=== PATIENT | female | born 1950 | race African-American/Black ===

== ENCOUNTER 2018-07-07 05:48 | Inpatient (IN) | payer OTHER ==
[~2018-07-07] VITALS: Ht 165.1 cm; Wt 106.1 kg
[2018-07-07 06:16] VITALS: BP 116/68
[2018-07-07 13:42] VITALS: BP 114/67
[2018-07-07 17:14] VITALS: BP 158/62
[2018-07-07 22:29] VITALS: BP 130/64
[2018-07-08 05:12] VITALS: BP 127/69
[2018-07-08 06:36] LABS: BASOPHIL % 0.3 % (0-2); PLATELET COUNT 330 x10^3mcL (130-400)
[2018-07-08 06:41] LABS: CALCIUM 8.4 mg/dL (8.5-10.1); CREATININE SERUM 1.1 mg/dL (0.6-1.0); POTASSIUM SERUM 4.2 mmol/L (3.5-5.1)
[2018-07-08 07:41] LABS: RED CELL DISTRIBUTION WIDTH 14.6 % (11.5-14.5)
[2018-07-08 08:55] VITALS: BP 115/59
[2018-07-08 12:27] VITALS: BP 130/64
[2018-07-08 12:46] VITALS: BP 117/58
[2018-07-08 16:40] VITALS: BP 126/61
[2018-07-08 20:39] VITALS: BP 120/50
[2018-07-09 04:13] VITALS: BP 107/56
[2018-07-09 07:21] LABS: BASOPHIL % 0.1 % (0-2); PLATELET COUNT 280 x10^3mcL (130-400); RED CELL DISTRIBUTION WIDTH 14.3 % (11.5-14.5)
[2018-07-09 07:27] LABS: CALCIUM 8.4 mg/dL (8.5-10.1); CARBON DIOXIDE 29.3 mmol/L (21-32); CREATININE SERUM 1.1 mg/dL (0.6-1.0); POTASSIUM SERUM 3.7 mmol/L (3.5-5.1)
[2018-07-09 09:55] VITALS: BP 0131/70
[2018-07-09 14:18] LABS: BASOPHIL % 0.2 % (0-2); PLATELET COUNT 315 x10^3mcL (130-400); RED CELL DISTRIBUTION WIDTH 14.9 % (11.5-14.5)
[2018-07-09 17:13] VITALS: BP 119/60
[2018-07-09 17:58] VITALS: BP 119/60
== END 2018-07-09 19:08 | disposition home health service (06) | DRG 470 ==
LOC: MU 05:48
PROVIDERS: Internal Medicine Pulmonary Disease; Neuromusculoskeletal Medicine, Sports Medicine
PROC: 30233N1 Transfusion of Nonautologous Red Blood Cells into Peripheral Vein, Percutaneous Approach (ICD-10-PCS; 2018-07-07)
PROC: 0SRD0J9 Replacement of Left Knee Joint with Synthetic Substitute, Cemented, Open Approach (ICD-10-PCS; principal; 2018-07-07 07:30)
DX: M17.12 Unilateral primary osteoarthritis, left knee (principal); I10 Essential (primary) hypertension; E66.01 Morbid (severe) obesity due to excess calories
CPT/HCPCS: 97110-GP; 97116-GP; 97139; 97530-GP; 97535-GP; C1713; C1776; J0690; J1170; J1580; J1650; J2250; J2704; J3010; J3490; J7120; Q0092; Q0162